=== PATIENT | male | born 1980 | race American Indian/Alaskan Native ===

== ENCOUNTER 2017-05-17 15:18 | Emergency (ER) | payer MEDICAID, OTHER ==
[2017-05-17 15:28] VITALS: BMI 28.1
[2017-05-17 15:30] VITALS: RESP 18
[2017-05-17] MEDS ORDERED: Albuterol 0.083% Inhal Sol (2.5 mg/3 mL) UD IH STA (15:55)
[2017-05-17] MEDS ORDERED: Albuterol 0.083% Inhal Sol (2.5 mg/3 mL) UD ONE (16:03)
--- NOTE | 2017-05-17 16:11 | RAD ---
HISTORY: COUGH, SOB, CP COMPARISON: No prior. TECHNIQUE: Chest PA and lateral FINDINGS: LUNGS: No focal consolidation. Bilateral 7 mm nodular densities, likely nipple shadows. Please note that chest x-ray has limited sensitivity for the detection of pulmonary masses. PLEURA: No significant pleural effusion identified. No definite pneumothorax . CARDIOVASCULAR: The cardiomediastinal silhouette appears within normal limits of size. OSSEOUS STRUCTURES: No acute osseous abnormality identified. VISUALIZED UPPER ABDOMEN: Unremarkable. OTHER FINDINGS: None. IMPRESSION: No focal consolidation, significant pleural effusion, or definite pneumothorax identified. Bilateral 7 mm nodular densities presumed to reflect nipple shadows bilaterally.
--- NOTE | 2017-05-17 17:00 | C.PDOC ---
History Of Present Illness 36 y/o male, with PMHx of asthma, presents to ED for evaluation of shortness of breath, wheezing, and non-productive cough that developed today. Patient also reports sharp chest pain when coughing and with deep breathing. He denies history of intubations, and states he has been using inhaler at home with minimal relief. Patient denies fever, chills, nausea, vomiting, or lower extremity pain/swelling. Time Seen by Provider: 05/17/17 15:42 Chief Complaint (Nursing): Chest Pain History Per: Patient History/Exam Limitations: no limitations Onset/Duration Of Symptoms: Days Current Symptoms Are (Timing): Still Present Quality: Sharp Associated Symptoms: denies: Nausea, Diaphoresis, Syncope Exacerbating Factors: Deep Breathing, Other (coughing) Alleviating Factors: None Recent travel outside of the [place]: No Additional History Per: Patient Past Medical History Reviewed: Historical Data, Nursing Documentation, Vital Signs Vital Signs: Last Vital Signs Temp 98 F 05/17/17 17:03 Pulse 88 05/17/17 17:03 Resp 18 05/17/17 17:03 BP 124/71 05/17/17 17:03 Pulse Ox 98 05/17/17 18:36 - Medical History PMH: Asthma, HIV - [facility] Procedures TETANUS TOXOID ADMINIST (08/02/14) Family History: States: Hypertension - Social History Hx Tobacco Use: No Hx Alcohol Use: Yes Hx Substance Use: No - Immunization History Hx Tetanus Toxoid Vaccination: No Hx Influenza Vaccination: No Hx Pneumococcal Vaccination: No Review Of Systems Except As Marked, All Systems Reviewed And Found Negative. Constitutional: Negative for: Fever, Chills Cardiovascular: Positive for: Chest Pain. Negative for: Palpitations, Edema, Light Headedness Respiratory: Positive for: Cough, Shortness of Breath, Wheezing. Negative for: Hemoptysis, Sputum Gastrointestinal: Negative for: Nausea, Vomiting Skin: Negative for: Rash Neurological: Negative for: Headache, Dizziness Physical Exam - Physical Exam Appears: Well, Non-toxic, No Acute Distress, Other (speaking in full sentences) Skin: Normal Color, Warm, Dry, No Rash Oral Mucosa: Moist Neck: Supple Cardiovascular: Rhythm Regular, No Murmur Respiratory: No Accessory Muscle Use, No Rales, No Rhonchi, Wheezing (mild expiratory wheezing bilaterally ) Gastrointestinal/Abdominal: Normal Exam, Bowel Sounds, Soft, No Tenderness Extremity: Normal ROM, No Pedal Edema, No Calf Tenderness Extremity: Bilateral: Atraumatic Neurological/Psych: Oriented x3 ED Course And Treatment ECG: Interpreted By Me, Viewed By Me ECG Rhythm: Sinus Rhythm ECG Interpretation: Normal Interpretation Of ECG: Normal axis, no acute ST/T wave changes. Rate From EC (bpm) O2 Sat by Pulse Oximetry: 98 (RA) Pulse Ox Interpretation: Normal - Other Rad CXR X-Ray: Viewed By Me, Read By Radiologist Interpretation: FINDINGS: LUNGS: No focal consolidation. Bilateral 7 mm nodular densities, likely nipple shadows. Please note that chest x-ray has limited sensitivity for the detection of pulmonary masses. PLEURA: No significant pleural effusion identified. No definite pneumothorax . CARDIOVASCULAR: The cardiomediastinal silhouette appears within normal limits of size. OSSEOUS STRUCTURES: No acute osseous abnormality identified. VISUALIZED UPPER ABDOMEN: Unremarkable. OTHER FINDINGS: None. IMPRESSION: No focal consolidation, significant pleural effusion, or definite pneumothorax identified. Bilateral 7 mm nodular densities presumed to reflect nipple shadows bilaterally. Progress Note: Plan: CXR, EKG ordered and reviewed. Patient given Prednisone, and nebulizer treatment. Reevaluation Time: 17:00 Reassessment Condition: Improved (On reassessment, patient is resting comfortably and states he feels better. On exam, he has good air entry B/L without wheezing or accessory muslce use. Pox is 98-100% onRA, and patient is well appearing and comfortable being discharged home. Rxs given for prednisone , tessalon, and patient instructed to follow up with PMD/clinic in 1-2 days. He understands he should return to ED if symptoms worsen.) Disposition Counseled Patient/Family Regarding: Studies Performed, Diagnosis, Need For Followup, Rx Given - Disposition Referrals: [facility] at [facility] [Outside] Disposition: HOME/ ROUTINE Disposition Time: 17:00 Condition: STABLE Additional Instructions: FOLLOW UP WITH YOUR DOCTOR/CLINIC IN 1-2 DAYS USE MEDICATIONS DIRECTED RETURN TO ER IF SYMPTOMS WORSEN Prescriptions: Benzonatate [Tessalon Perles] 100 mg PO BID PRN #15 sgl PRN Reason: Cough predniSONE [predniSONE Tab] 40 mg PO DAILY #8 tab Instructions: Asthma (ED) Forms: [employer] (Albanian), Work Excuse Print Language: AZERI - Clinical Impression Clinical Impression: Asthma exacerbation - Scribe Statement The provider has reviewed the documentation as recorded by the Scribe Roseanna Cervantes All medical record entries made by the Ingrisibe were at my direction and personally dictated by me. I have reviewed the chart and agree that the record accurately reflects my personal performance of the history, physical exam, medical decision making, and the department course for this patient. I have also personally directed, reviewed, and agree with the discharge instructions and disposition.
[2017-05-17 17:03] VITALS: BP 124/71; PULSE 88; TEMP 98
[2017-05-17 18:16] VITALS: O2SAT 98
--- NOTE | 2017-05-21 19:45 | CARD ---
APPROVED REPORT EKG Measurement Heart [id number] <Conclusion> Normal sinus rhythm Normal ECG
== END 2017-05-17 17:04 | disposition home or self-care (01) ==
LOC: C.ER 15:18
DX: J45.901 Unspecified asthma with (acute) exacerbation (principal)

== ENCOUNTER 2018-11-27 14:28 | Emergency (ER) | payer OTHER, MEDICAID | END 2018-11-27 15:33 | disposition home or self-care (01) | LOC: C.ER 14:28 ==